=== PATIENT | female | born 1965 | race Caucasian/White ===

== ENCOUNTER 2017-03-23 23:46 | Emergency (ER) | payer OTHER ==
[~2017-03-23] VITALS: Ht 177.8 cm; Wt 59.0 kg
[~2017-03-23 23:46] MED LIST: AMOX-430 PO; METR500T PO
--- NOTE | 2017-03-24 | NUR ---
TO BED 1 AAOX3, AMBULTORY 51 YO FEMALE BIBSELF, C/O SORE THROAT/VOICE, RUNNY NOSE, COUGH AND CONGESTION X 1 DAY. AFEBRILE. VSS. NONDIAPHORETIC. GOWNED. COMFORT MEASURES RENDERED. AWAITING FOR ER MD [place].
[2017-03-24] MEDS ORDERED: ACETAMINOPHEN 325 MG TABLET PO ONE (01:00)
[2017-03-24] MEDS ORDERED: ACETAMINOPHEN ES 500 MG TABLET ONE (01:08)
--- NOTE | 2017-03-24 01:22 | NUR ---
Patient discharged to home in stable condition. Written and verbal after care instructions given. Patient verbalizes understanding of instruction. Patient is ambulatory with steady gait, no further complaints.
[2017-03-24 01:23] VITALS: BP 120/74
== END 2017-03-24 01:24 | disposition home or self-care (01) ==
LOC: ER 23:46
DX: J06.9 Acute upper respiratory infection, unspecified (principal); Z90.710 Acquired absence of both cervix and uterus
CPT/HCPCS: 99283; A4606; Z7610

== ENCOUNTER 2023-08-02 11:21 | Emergency (ER) | payer MEDICAID, OTHER ==
[~2023-08-02] VITALS: Ht 177.8 cm; Wt 61.2 kg
[2023-08-02 11:47] VITALS: BP 132/68; TEMP 98.4
[2023-08-02] MEDS ORDERED: PRED50TA PO (12:56)
[2023-08-02] MEDS ORDERED: methylPREDNISolone ACETATE 40 MG/ML VIAL IM ONE (13:00)
[2023-08-02] MEDS ORDERED: methylPREDNISolone ACETATE 80 MG/ML VIAL ONE (13:02)
[2023-08-02 13:21] VITALS: O2SAT 100
== END 2023-08-02 13:29 | disposition home or self-care (01) ==
LOC: ER 11:21
DX: L29.9 Pruritus, unspecified (principal); Z90.710 Acquired absence of both cervix and uterus
CPT/HCPCS: 99283; 96372; J1030; J1040

== ENCOUNTER 2025-07-31 00:02 | Emergency (ER) | payer MEDICAID ==
[~2025-07-31] VITALS: Ht 177.8 cm; Wt 61.2 kg
[~2025-07-31 00:02] MED LIST changes: +PRED50TA PO
[2025-07-31 01:41] VITALS: TEMP 97.6
[2025-07-31] MEDS ORDERED: PSEUDOEPHEDRINE HCL 30 MG TABLET ONE (01:53)
[2025-07-31] MEDS ORDERED: BENZONATATE 100 MG CAPSULE PO ONE (01:53)
[2025-07-31] MEDS: BENZONATATE 100 MG CAPSULE PO PRN (01:57)
[2025-07-31] MEDS: PSEUDOEPHEDRINE HCL 30 MG TABLET PO ONE (01:57)
[2025-07-31 03:12] VITALS: BP 130/81
[2025-07-31] MEDS ORDERED: ALBU18HF2 INH (03:50)
[2025-07-31] MEDS ORDERED: BENZ-13 PO (03:50)
[2025-07-31 04:01] VITALS: O2SAT 100
== END 2025-07-31 04:11 | disposition home or self-care (01) ==
LOC: ER 00:04
DX: R05.9 Cough, unspecified (principal); R09.81 Nasal congestion; J34.89 Other specified disorders of nose and nasal sinuses; Z90.710 Acquired absence of both cervix and uterus; Z91.048 Other nonmedicinal substance allergy status
CPT/HCPCS: 71045-TC